=== PATIENT | male | born 1930 | race Caucasian/White ===

== ENCOUNTER → 2017-05-18 | Day surgery (SDC) | payer MEDICARE ==
[2017-05-17 11:05] LABS: BASOPHILS # (AUTO) 0.1 (0.0-0.1); BASOPHILS % 0.6 % (0.0-1.0); EOSINOPHILS # (AUTO) 0.3 (0.0-0.4); EOSINOPHILS % 3.7 % (0.0-6.0); HEMATOCRIT 36.3 % (38.2-49.6); HEMOGLOBIN 11.9 g/dL (14.0-18.0); LYMPHOCYTES # (AUTO) 1.6 (1.0-3.2); LYMPHOCYTES % 18.6 % (18.0-39.1); MEAN CORPUSCULAR HEMOGLOBIN 30.5 pg (28-32); MEAN CORPUSCULAR HGB CONC 32.8 g/dL (31-35); MEAN CORPUSCULAR VOLUME 93.1 fL (81-99); MONOCYTES # (AUTO) 0.9 (0.2-0.8); MONOCYTES % 10.8 % (4.4-11.3); NEUTROPHILS # (AUTO) 5.6 (2.1-6.9); NEUTROPHILS % 66.1 % (38.7-80.0); PLATELET COUNT 243 x10e3/uL (140-360); RED CELL DISTRIBUTION WIDTH 12.9 % (11.7-14.4)
[2017-05-17 11:23] LABS: BLOOD UREA NITROGEN 15 mg/dL (7-26); BUN/CREATININE RATIO 17 (6-25); CALCIUM 9.2 mg/dL (8.4-10.2); CARBON DIOXIDE 26 mmol/L (22-29); CHLORIDE 103 mmol/L (98-107); EST GLOMERULAR FILTRATION RATE > 60 ML/MIN (60-); GLUCOSE 101 mg/dL (74-118); SODIUM 139 mmol/L (136-145)
--- NOTE | 2017-05-17 11:59 | Diagnostic Imaging Report ---
PROCEDURE: Frontal and lateral views of the chest. COMPARISON: Patients [facility], CT, CT ABDOMEN/PELVIS WO, 10/31/2011, 14:25. INDICATIONS: PRE OPERATIVE CHEST X-RAY FOR UROLOGY SURGERY FINDINGS: Lines/tubes: None. Lungs: The lungs are well inflated and clear. There is no evidence of pneumonia or pulmonary edema. Pleura: There is no pleural effusion or pneumothorax. Heart and mediastinum: Cardiac silhouette is unremarkable. Pulmonary vasculature is normal. Tortuous aorta. Bones: No acute bony abnormality. Degenerative changes in the thoracic spine. IMPRESSION: 1. No acute cardiopulmonary abnormalities. Jay Banda M.D. Dictated by: Jay Banda M.D. on 05/17/2017 at 11:59 Electronically approved by: Jay Banda M.D. on 05/17/2017 at 11:59
[~2017-05-18] MED LIST: AMLODIPINE BESYL5 MG PO; ARICEPT5 MG PO; ASPIR 8181 MG PO; BUPIVACAINE HCL 0.5% 10ML MPF VIAL INJ ONE; CALCIUM CARBON500 MG PO; CEFAZOLIN SOD 1 GM VIAL ONE; CLINDAMYCIN 300MG 50 ML IV ONE; CLOPIDOGREL75 MG PO; CRESTOR10 MG PO; FENTANYL CITRATE/PF 100MCG/2 ML INJ ONE; FIBER TABS625 MG PEG; GABAPENTIN300 MG PO; ISOSORBIDE DINI20 MG PO; LIDOCAINE 2% /EPINEPHRINE 20 ML SDV INJ ONE; LIDOCAINE HCL 2% LOCAL INJ 5 ML SDV VIAL INJ ONE; LOSARTAN-HCTZ1 EAC2 PO; LYRICA75 MG PO; MIRALAX17 GM PO; MULTI-VITAMIN1 EACH PO; MYRBETRIQ50 MG PO; NAMENDA10 MG PO; ONDANSETRON HCL INJ 2 MG/ML VIAL ONE; PROBIOTIC & AC1 EACH PO; PROPOFOL IV EMULSION 10 MG/ML 20 ML VIAL ONE; VITAMIN B-121000 MCG PO; VITAMIN D32000 UNI1 PO; [UNRECOGNIZED DRUG - OTHER] PO
--- OUTSIDE RECORDS SUMMARY | 2017-05-18 10:54 | XMS REPORT ---
Author [facility] Address Unknown Phone Unavailable Care Team Providers Care Integration Director Name Role Phone SHWETA GARCIA Unavailable Unavailable Problems This patient has no known problems. Allergies, Adverse Reactions, Alerts This patient has no known allergies or adverse reactions. Medications This patient has no known medications. Results Test Description Test Time Test Comments Text Results Atomic Results Result Comments CHEST 2 VIEWS [place] [address] Patient Name: DOMO BENAVIDES MR #: [id number] : 1930 Age/Sex: 86/M Req # : [id number] Adm Physician: Ordered by: SHWETA GARCIA MD Report #: [id number] Location: OR Room/Bed: Procedure: [id number] DX/CHEST 2 VIEWS Exam Date: 05/17/17 Exam Time: 1100 REPORT STATUS: Signed PROCEDURE: Frontal and lateral views of the chest. COMPARISON: [facility], CT, CT ABDOMEN/PELVIS WO, 10/31/2011, 14:25. INDICATIONS: PRE OPERATIVE CHEST X-RAY FOR UROLOGY SURGERY FINDINGS: Lines/tubes: None. Lungs: The lungs are well inflated and clear. There is no evidence of pneumonia or pulmonary edema. Pleura: There is no pleural effusion or pneumothorax. Heart and mediastinum: Cardiac silhouette is unremarkable. Pulmonary vasculature is normal. Tortuous aorta. Bones: No acute bony abnormality. Degenerative changes in the thoracic spine. IMPRESSION: 1. No acute cardiopulmonary abnormalities. Huber Wall M.D. Dictated by: Huber Wall M.D. on 05/17/2017 at 11:59 Electronically approved by: Huber Wall M.D. on 05/17/2017 at 11:59 Dictated By: HUBER WALL MD 1151 Transcribed By: RAMSEY on 05/17/17 1159 COPY TO: SHWETA GARCIA MD
--- NOTE | 2017-07-15 06:03 | Operative Report ---
DATE OF PROCEDURE: May 18, 2017 PREOPERATIVE DIAGNOSIS: Refractory urge incontinence. POSTOPERATIVE DIAGNOSIS: Refractory urge incontinence. OPERATIONS PERFORMED 1. Complete InterStim system implantation with incision and implantation of tined quadripolar lead electrode into the foramen S3 (complicated procedure requiring 2 separate incisions). 2. Fluoroscopic guidance for needle placement. 3. Subcutaneous implantation of sacral nerve neurostimulator on the left hand side. 4. Supervision of fluoroscopy. 5. Electronic analysis and complex programming. ANESTHESIA: General. COMPLICATIONS: None. CLINICAL SUMMARY: Rio Sanz is an 86-year-old man with refractory urge incontinence. He had undergone successful percutaneous test in the office. He has failed medications and behavioral therapy. He carefully weighed the risks, alternatives and benefits of InterStim nerve stimulator. He understands the fact that he will not be able to have MRI examinations. He understood all these risks and elected to proceed. OPERATIVE PROCEDURE IN DETAIL: Informed consent was verified. Rio Sanz was properly identified and taken to the operating room, and placed on the operating table in the prone position. Pillows were placed on the lower abdomen to flatten the sacrum and under the shins to allow the toes to dangle freely. The patient's back and buttocks were prepared and draped in the usual sterile fashion. Needle was then introduced into the left foramen S3 from what we felt was the foramen of S3. The depth of the needle was confirmed fluoroscopically. Proper needle position was confirmed. Direct observation and lifting of the perineum and bellowing and direct observation of plantar flexion of the great toe utilizing the test stimulator box. The needle stylette was removed and directional guidewire was then placed and confirmed fluoroscopically. The foramen needle was removed. An incision was made peripherally to the directional guide. The dilator and introducer sheath were then placed over the directional guidewire and directed into foramen until the opaque marker of the dilator was seen at the midpoint through the sacrum. The dilator and obturator was then unlocked and removed. The lead was then placed through the introducer sheath to the 1st lamina. Position was checked fluoroscopically. The lead was then further tested. It was advanced until 3 electrodes were visible anterior to the sacrum. Each electrode was then tested for the above reaction. At this point in time, we did not get the same proper response we got with the initial needle placement. I was discontent with the position of the lead. We did not wish to deploy the electrodes and the tines of the electrodes without confirming that we had an ideal position. Therefore, the entire procedure was then repeated with an incision from proximally from the foramen away from the current incision. This time we went through all the above procedures again. This time we got an excellent response from all electrodes stimulated. Then we felt comfortable deploying the lead tines. Once satisfactory position was confirmed under continuous fluoroscopy, the introducer sheath was retracted thus deploying the lead tines into the parasacral tissue. Further incision was then made in the subcutaneous tissues posterior to the iliac crest. A pocket was developed. The tunneling tool was then utilized to bring the lead into the pocket site. The lead was thoroughly cleansed of any bodily fluid with sterile water and dried thoroughly. The lead was then inserted into the pulse generator header with the metal bands aligned and the blue tip clearly visible in the distal portion of the pulse generator header. The single set screw was tightened with a hex wrench. The pulse generator was then placed into the subcutaneous pocket following copiously irrigating all incisions. The programming head was then placed over the implanted neurostimulator, and the impedance was verified to be in appropriate parameters for all leads. All incisions were then opposed in 2 layers utilizing absorbable suture. Mastisol and Steri-Strips were applied. Bio-occlusive dressings were applied. The patient was uneventfully reversed from anesthesia, and taken to the recovery room in stable condition. There were no complications of the procedure. The patient tolerated the procedure well. Sponge, needle and instrument counts were correct at the end of the case. Estimated blood loss was minimal. Using the clinician operating systems programmer, the patient was programmed to a lead most optimal sensation and given instructions and utilization of the patient's operating systems programmer prior to discharge. Job#: [id number] GUCCI
== END | disposition home or self-care (01) ==
LOC: OR 10:51
PROVIDERS: ATTEND Urology
DX: N39.41 Urge incontinence (principal); C61 Malignant neoplasm of prostate; N40.1 Benign prostatic hyperplasia with lower urinary tract symptoms; R39.14 Feeling of incomplete bladder emptying; R35.1 Nocturia; N26.9 Renal sclerosis, unspecified; N50.0 Atrophy of testis; E29.1 Testicular hypofunction; I86.1 Scrotal varices; N28.1 Cyst of kidney, acquired; N20.0 Calculus of kidney; N32.81 Overactive bladder; K42.9 Umbilical hernia without obstruction or gangrene; I25.10 Atherosclerotic heart disease of native coronary artery without angina pectoris; I10 Essential (primary) hypertension; I44.0 Atrioventricular block, first degree; H91.90 Unspecified hearing loss, unspecified ear; G62.9 Polyneuropathy, unspecified; Z01.810 Encounter for preprocedural cardiovascular examination; Z01.812 Encounter for preprocedural laboratory examination; Z01.818 Encounter for other preprocedural examination; Z79.02 Long term (current) use of antithrombotics/antiplatelets; Z79.82 Long term (current) use of aspirin; Z86.73 Personal history of transient ischemic attack (TIA), and cerebral infarction without residual deficits; Z87.891 Personal history of nicotine dependence; Z84.1 Family history of disorders of kidney and ureter
CPT/HCPCS: 64581; 64590; 95972; C1778; L8679; 36415; 71046; 76000; 80048; 85025; 93005; J0690; J2001; J2405

== ENCOUNTER → 2018-07-15 | Outpatient (CLI) | payer MEDICARE ==
[~2018-07-15] MED LIST changes: -BUPIVACAINE HCL 0.5% 10ML MPF VIAL INJ ONE; -CEFAZOLIN SOD 1 GM VIAL ONE; -CLINDAMYCIN 300MG 50 ML IV ONE; -FENTANYL CITRATE/PF 100MCG/2 ML INJ ONE; -LIDOCAINE 2% /EPINEPHRINE 20 ML SDV INJ ONE; -LIDOCAINE HCL 2% LOCAL INJ 5 ML SDV VIAL INJ ONE; -ONDANSETRON HCL INJ 2 MG/ML VIAL ONE; -PROPOFOL IV EMULSION 10 MG/ML 20 ML VIAL ONE
--- NOTE | 2018-07-15 15:25 | Diagnostic Imaging Report ---
Exam: Sacrum, 2 views, pelvis, frontal view History: Feeling of incomplete bladder emptying Comparison: None. Findings: Sacrum: Sacral stimulator device lead projects over the left-sided sacral foramen on the frontal radiograph and enters the pelvis via the third left sacral foramen as seen on the lateral radiograph. No acute displaced fracture or dislocation. Sacral foramina are intact superiorly. Sacroiliac joints are well-maintained. No sacrococcygeal step-off on the lateral radiograph. Pelvis: No acute, displaced fracture or dislocation. 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 Vertebroplasty cement within the L4 vertebral body which is otherwise nearly completely collapsed. Soft tissues are unremarkable. Impression: No acute osseous abnormalities. Pelvic stimulator device in position as described above. 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 Signed by: Dr. Stuart Cabrera M.D. on 07/15/2018 3:22 PM
== END ==
LOC: RAD 14:22
PROVIDERS: ATTEND Urology
DX: R39.14 Feeling of incomplete bladder emptying (principal)
CPT/HCPCS: 72170; 72220

== ENCOUNTER → 2018-09-10 | Outpatient (CLI) | payer MEDICARE ==
--- NOTE | 2018-09-10 12:52 | Diagnostic Imaging Report ---
Exam: Abdominal film Clinical History: Renal stone Comparison: Pelvic radiograph 07/15/2018 DISCUSSION: Left pelvic electronic device lead is unchanged in position. Probable left renal artery stent. No definite calcifications project over the renal shadows or expected ureteral courses though evaluation is limited secondary to overlying bowel gas and fecal material. Bowel gas pattern is otherwise nonobstructive. Regional skeletal structures are intact. Vertebroplasty cement within the L4 vertebral body. Degenerative changes of the hips and lumbar spine. IMPRESSION: Limited evaluation of the renal shadows as above. No plain film evidence of urolithiasis. Signed by: Dr. Stuart Cabrera M.D. on 09/10/2018 12:49 PM
== END ==
LOC: RAD 12:03
PROVIDERS: ATTEND Urology
DX: N20.0 Calculus of kidney (principal)
CPT/HCPCS: 74018